=== PATIENT | male | born 1985 | race Caucasian/White ===

== ENCOUNTER 2021-07-08 15:25 | Emergency (ER) | payer OTHER, SELFPAY ==
[~2021-07-08] VITALS: Ht 175.3 cm; Wt 108.9 kg
[~2021-07-08 15:25] MED LIST: KEP500 PO
[2021-07-08 15:40] VITALS: BP 148/86
--- NOTE | 2021-07-08 15:49 | NUR ---
PT AMBULATED TO BED, STEADY GAIT
--- NOTE | 2021-07-08 16:11 | NUR ---
36 Y/O MALE BIB SELF C/O LT HAND ULCER X4 WEEKS AND BOTTOM LIP BUMP AND RED WOUND BEHIND R KNEE XLAST NIGHT. PT STATES 8/10 SHARP PAIN. PT ADMITS TO DRUG USE AT THIS TIME. PT STATED HE HAS BEEN GIVEN ABX FOR THE WOUNDS, BUT THEY HAVE YET TO HELP MEDHX: SEIZURE NKA
--- NOTE | 2021-07-08 16:23 | NUR ---
DR. SAAVEDRA BEDSIDE EVALUATING PT
[2021-07-08] MEDS ORDERED: CLIN-25 PO (16:34)
--- NOTE | 2021-07-08 16:39 | NUR ---
PT REFUSED HOMELESS PACKET UPON DISCHARGE
[2021-07-08 16:40] VITALS: BP 148/86
--- NOTE | 2021-07-08 16:40 | NUR ---
Patient discharged with v/s stable. Written and verbal after care instructions given and explained. Patient alert, oriented and verbalized understanding of instructions. Ambulatory with steady gait. All questions addressed prior to discharge. ID band removed. Patient advised to follow up with PMD. Rx of CLINDAMYCIN given. Patient educated on indication of medication including possible reaction and side effects. Opportunity to ask questions provided and answered.
== END 2021-07-08 16:40 | disposition home or self-care (01) ==
LOC: MED 15:25
DX: S61.402A Unspecified open wound of left hand, initial encounter (principal); K13.0 Diseases of lips; Z86.69 Personal history of other diseases of the nervous system and sense organs; Z79.2 Long term (current) use of antibiotics; Z79.899 Other long term (current) drug therapy; X58.XXXA Exposure to other specified factors, initial encounter; Y93.89 Activity, other specified; Y92.89 Other specified places as the place of occurrence of the external cause; Y99.8 Other external cause status
CPT/HCPCS: 99283